=== PATIENT | male | born 1965 | race Two or more races ===

== ENCOUNTER → 2019-01-31 | Outpatient (CLI) | payer OTHER ==
--- NOTE | 2019-01-31 14:44 | CONS ---
Assessment/Plan Assessment/Plan Hospital Course (Demo Recall) 53-year-old male who had a mild insufficiency fracture of his medial femoral condyle secondary to sudden increase in activity. Currently he is asymptomatic and the MRI showed minimal edema at the time of acquisition. At this time recommending starting a formal physical therapy to slowly increase physical activity and strength in a stepwise and guided manner. He is to use pain as his guide. Follow-up as needed. Consultation Date/Type/Reason Admit Date/Time Date of Consultation: Jan 31, 2019 Reason for Consultation Right knee pain Date/Time of Note DATE: 01/31/19 TIME: 14:32 Hx of Present Illness This is a 53-year-old male history of liver transplant with a chief complaint of right knee pain. The pain began approximately 7 months ago. The patient was increasing his physical activity in order to lose weight and decrease his hypertension. He began walking 2 hours a day which was not his usual routine. He began to have some medial sided knee pain over his medial femoral condyle. Over the course of several days is became worse and worse. Then he was unable to put full weight and was using crutches and a cane. He had x-rays that were reportedly normal. He rested his knee. He continued to have pain and in September he had an MRI. At the time his pain was 7/10. It was sharp and throbbing. He could not walk more than a block. Again he was using a cane or crutches. Any weightbearing movement worsened the knee. Rest made the knee pain better. Currently he feels that he is no longer limping and does not require a gait aid. He states he has 0/10 pain. Denies numbness and tingling in his lower leg except for his toes which is secondary to his immunosupp ressants. Patient denies fever, chills, shortness of breath, chest pain, nausea/vomiting, constipation, diarrhea, numbness, and tingling. Past Medical History Hepatitis C Liver cirrhosis status post liver transplant x2 Hypertension Asthma Past Surgical History Liver transplant x2 Family History Significant Family History: no pertinent family hx Social History Alcohol Use: none Smoking Status: Former smoker Drug Use: none Exam/Review of Systems Exam Vitals Weight: 214 pounds Height: 5 foot 9 inch Temperature: 98 point Heart Rate: 66 Blood Pressure: 155/101 Respiratory Rate: 14 Exam General: Alert, oriented x3. No Acute Distress. Heart: Regular rate and rhythm. Lungs: No respiratory distress. No accessory muscle use. Musculoskeletal: Right Knee This is a well developed male who is alert, oriented times three and in no apparent distress. Skin is intact over the right knee as well as the lower extremity with no ciara sions, lacerations, or ulcerations. Observation of the patient's gait reveals a non- antalgic gait with No thrust. Frontal plane alignment is neutral. There is pain on palpation to his medial femoral condyle. There is no tenderness palpation over either joint line. The patient demonstrates grinding anteriorly with ROM. Range of motion: 0 extension to approximately 130 degrees of flexion. Collateral ligament testing reveals no instability with varus or valgus stress at 0 and 30 degrees of flexion. Negative Skip's and negative posterior drawer. Neurovascularly intact with 5/5 EHL/tibialis anterior/gastroc. Sensation intact to light touch in a sural, saphenous, deep peroneal, superficial peroneal, medial and lateral plantar nerve distribution. Palpable, symmetric dorsalis pedis and posterior tibial pulses in both lower extremities. Hip examination normal. Imaging Imaging MRI of the right knee from outside facility was personally reviewed. This MRI was performed on 10/04/2018. Mild intrameniscal degenerative changes of the posterior horn and body of the medial meniscus. No discrete tear. 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 The anterior and posterior cruciate ligaments are intact. MCL and LCL are intact. No chondromalacia in any compartment. There is mild trabecular bone edema of the medial femoral condyle consistent with a contusion. SUNDAR MONCADA MD Jan 31, 2019 14:43
== END | disposition home or self-care (01) ==
LOC: HKI 14:08
PROVIDERS: ATTEND Orthopaedic Surgery Adult Reconstructive Orthopaedic Surgery
DX: M25.561 Pain in right knee (principal); Z94.4 Liver transplant status; M17.11 Unilateral primary osteoarthritis, right knee
CPT/HCPCS: G0463